=== PATIENT | female | born 1960 | race Caucasian/White ===

== ENCOUNTER 2020-02-14 08:14 | Emergency (ER) | payer MEDICAID ==
[~2020-02-14] VITALS: Ht 165.1 cm; Wt 77.0 kg
[~2020-02-14 08:14] MED LIST: CLON-529 PO; CYCL1DRO EACHEYE; FLUT16SP26 BOTHNARES; HYDR-3972 PO; HYDR12.5 PO; LEVO50TA8 PO; LISI10TA4 PO; MAGN400T28 PO; NAPR-996 PO; RANI150T8 PO; SUCR1ORA2 PO; VITA400C67 PO
[2020-02-14 08:20] VITALS: BP 150/94
[2020-02-14 08:42] LABS: CLARITY,URINE CLOUDY (Clear); COLOR,URINE ORANGE (Yellow)
[2020-02-14 08:44] LABS: UA COLLECTION TYPE CLN CATCH MIDSTREAM
[2020-02-14 08:47] LABS: BACTERIA,URINE 3+ /HPF (Neg); MUCUS STRANDS FEW /LPF (Neg); RENAL CELLS, URINE FEW /HPF; SQUAMOUS EPITHELIAL CELL,UR FEW /LPF (FEW); WBC,URINE TNTC /HPF (0-4)
[2020-02-14] MEDS ORDERED: PHEN-786 PO (09:26)
[2020-02-14] MEDS ORDERED: NITR100C PO (09:26)
== END 2020-02-14 09:53 | disposition home or self-care (01) ==
LOC: ER 08:15
DX: N39.0 Urinary tract infection, site not specified (principal); R30.0 Dysuria; R30.9 Painful micturition, unspecified; I10 Essential (primary) hypertension; Z87.442 Personal history of urinary calculi; Z87.440 Personal history of urinary (tract) infections; Z91.018 Allergy to other foods; Z79.899 Other long term (current) drug therapy
CPT/HCPCS: 81001; 87077; 87088; 87186; 99283

== ENCOUNTER 2021-07-20 11:25 | Emergency (ER) | payer MEDICAID ==
[~2021-07-20] VITALS: Ht 165.1 cm; Wt 77.3 kg
[~2021-07-20 11:25] MED LIST changes: +LISI10TA27 PO; -LISI10TA4 PO; -MAGN400T28 PO; +MAGN400T56 PO; +NITR100C PO; +PHEN-786 PO
[2021-07-20 12:15] LABS: ALANINE AMINOTRANSFERASE 49 U/L (12-78); ALBUMIN 3.7 G/DL (3.4-5.0); ALBUMIN/GLOBULIN RATIO 0.9 (1.1-1.5); ALKALINE PHOSPHATASE 75 IU/L (46-116); ANION GAP 11 (8-16); ASPARTATE AMINO TRANSFERASE 57 U/L (10-37); BILIRUBIN,TOTAL 0.5 MG/DL (0.1-1.0); BLOOD UREA NITROGEN 16 MG/DL (7-18); BUN/CREATININE RATIO 20.3 (6.6-38.0); CALCIUM 8.7 MG/DL (8.5-10.1); CHLORIDE 102 MMOL/L (99-107); CREATININE 0.79 MG/DL (0.40-0.90); GLUCOSE 112 MG/DL (70-104); LIPASE 140 U/L (73-393); POTASSIUM 4.2 MMOL/L (3.5-5.1); SODIUM 136 MMOL/L (135-145); TOTAL CARBON DIOXIDE 22.7 MMOL/L (24-32); TOTAL PROTEIN 7.7 G/DL (6.4-8.2); eGFR 74 ML/MIN
[2021-07-20 12:18] LABS: BASOPHILS % (AUTO) 0.5 % (0-1); EOSINOPHILS % (AUTO) 0 % (0-6); HEMATOCRIT 45.1 % (35.0-45.0); HEMOGLOBIN 15.4 g/dl (12.0-16.0); LYMPHOCYTES # (AUTO) 0.7 X10'3 (1.1-4.8); LYMPHOCYTES % (AUTO) 17.9 % (21-51); MEAN CORPUSCULAR VOLUME 88.2 FL (78-98); MEAN PLATELET VOLUME 9.5 FL (7.4-10.4); MONOCYTES # (AUTO) 0.4 X10'3 (0-0.9); MONOCYTES % (AUTO) 10.8 % (2-12); NEUTROPHILS # (AUTO) 2.8 X10'3 (1.8-7.7); NEUTROPHILS % (AUTO) 70.8 % (42-75); PLATELET COUNT 160 X10'3 (140-440); RED BLOOD COUNT 5.12 X10'6 (4.20-5.60); RED CELL DISTRIBUTION WIDTH 12.9 % (11.5-14.5); WHITE BLOOD COUNT 3.9 X10'3 (4.5-11.0)
[2021-07-20 12:24] LABS: CLARITY,URINE CLOUDY (Clear); COLOR,URINE YELLOW (Yellow); GLUCOSE, URINE NEGATIVE (Neg); KETONES,URINE >=80 mg/dl (Neg); LEUKOCYTE ESTERASE ,URINE NEGATIVE (Neg); NITRITES, URINE NEGATIVE (Neg); OCCULT BLOOD,URINE NEGATIVE (Neg); PROTEIN,URINE NEGATIVE (Neg); UROBILINOGEN,URINE 0.2 E.U/dL (0.2-1.0)
[2021-07-20 12:25] LABS: URINE HCG NEGATIVE (NEG)
[2021-07-20 12:33] LABS: UA COLLECTION TYPE VOIDED
[2021-07-20 12:34] LABS: MUCUS STRANDS MANY /LPF (Neg); SQUAMOUS EPITHELIAL CELL,UR MANY /LPF (FEW)
[2021-07-20 12:35] LABS: BACTERIA,URINE 2+ /HPF (Neg); RBC,URINE 0-2 /HPF (0-2); WBC,URINE 0-4 /HPF (0-4)
[2021-07-20 12:37] LABS: TRANSITIONAL EPI CELLS,URINE MODERATE /HPF
[2021-07-20 16:29] VITALS: BP 155/91
--- NOTE | 2021-07-20 16:32 | NUR ---
haroldo hernandez at bedside.
[2021-07-20] MEDS ORDERED: HYDROcodone/acetaminophen 5mg/325mg tablet PO ONE (16:50)
[2021-07-20] MEDS ORDERED: normal saline 1000ML IV soln IVB ONE (16:50)
== END 2021-07-20 19:26 | disposition home or self-care (01) ==
LOC: ER 11:25
DX: U07.1 COVID-19 (principal); R11.2 Nausea with vomiting, unspecified; I10 Essential (primary) hypertension; M19.90 Unspecified osteoarthritis, unspecified site; E07.9 Disorder of thyroid, unspecified; Z87.442 Personal history of urinary calculi; Z87.440 Personal history of urinary (tract) infections; Z88.8 Allergy status to other drugs, medicaments and biological substances; Z79.899 Other long term (current) drug therapy
CPT/HCPCS: 36415; 80053; 81001; 81025; 83690; 85025; 87635; 96360; 99283; C9803; J7030

== ENCOUNTER 2023-02-06 11:03 | Emergency (ER) | payer MEDICAID ==
[~2023-02-06] VITALS: Ht 165.1 cm; Wt 75.0 kg
[2023-02-06 12:04] VITALS: BP 124/80; PULSE 64; TEMP 97.6; O2SAT 98
[2023-02-06] MEDS ORDERED: CYCL-1 PO (13:41)
[2023-02-06] MEDS ORDERED: IBUP-1986 PO (13:41)
[2023-02-06] MEDS ORDERED: orphenadrine citrate 60mg/2ml inj. IM ONE (13:45)
[2023-02-06] MEDS ORDERED: ketorolac trometh inj. 60 MG/2 ML VIAL IM ONE (13:45)
[2023-02-06 13:57] VITALS: RESP 18
== END 2023-02-06 14:43 | disposition home or self-care (01) ==
LOC: ER 11:03
DX: S60.512A Abrasion of left hand, initial encounter (principal); X58.XXXA Exposure to other specified factors, initial encounter; Y93.89 Activity, other specified; Y92.89 Other specified places as the place of occurrence of the external cause; Y99.8 Other external cause status
CPT/HCPCS: 96372; 99284; J1885; J2360

== ENCOUNTER 2023-02-13 09:14 | Emergency (ER) | payer MEDICAID ==
[~2023-02-13] VITALS: Ht 165.1 cm; Wt 72.7 kg
[~2023-02-13 09:14] MED LIST changes: +CYCL-1 PO; +IBUP-1986 PO
[2023-02-13 09:30] VITALS: BP 140/84; PULSE 109; RESP 20; TEMP 97.8; O2SAT 97
== END 2023-02-13 13:33 | disposition home or self-care (01) ==
LOC: ER 09:14
DX: S32.028A Other fracture of second lumbar vertebra, initial encounter for closed fracture (principal); W18.39XA Other fall on same level, initial encounter; Y93.89 Activity, other specified; Y92.89 Other specified places as the place of occurrence of the external cause; Y99.8 Other external cause status
CPT/HCPCS: 99281